=== PATIENT | female | born 1960 | race American Indian/Alaskan Native ===

== ENCOUNTER 2020-08-16 13:55 | Emergency (ER) | payer OTHER ==
--- NOTE | 2020-08-16 14:25 | Event Note ---
ED Screening Note ED Screening Note: Patient is a 50-year-old female presents emergency room with a history of endometrial hyperplasia and uterine fibroids who presents for heavy vaginal bleeding She states that she has been bleeding daily for a month She states over the last several days the bleeding has significantly increased she states that she is having to change her pad two or three times an hour She states that she had endometrial biopsy last month which she reports was normal She states that she has had have multiple D&Cs in the past She states that she has a preop appointment with her doctor on Tuesday for D&C versus hysterectomy She states that her doctor is Dr. Dary Eaton, [employer] and she advised her to be seen in the emergency room today Patient states that she was on Provera approximately a month ago for around 14 days She also has a history of hypertension and states that she takes losartan hydrochlorothiazide This initial assessment/diagnostic orders/clinical plan/treatment(s) is/are subject to change based on patients health status, clinical progression and re- assessment by fellow clinical providers in the ED. Further treatment and workup at subsequent clinical providers discretion. Patient/guardian urged not to elope from the ED as their condition may be serious if not clinically assessed and managed. Initial orders include: Labs, urine
[2020-08-16 14:26] VITALS: BP 221/103
[2020-08-16 15:05] LABS: Basophils # (Auto) 0.1 K/mm3 (0.0-0.1); Eosinophils # (Auto) 0.2 K/mm3 (0.0-0.4); Eosinophils % (Auto) 2.5 % (0.0-4.3); Hematocrit 33.5 % (30.3-42.9); Hemoglobin 11.3 gm/dl (10.1-14.3); Lymphocytes # (Auto) 1.6 K/mm3 (1.2-5.4); Lymphocytes % (Auto) 25.5 % (13.4-35.0); Mean Corpuscular HGB Conc 34 % (30-34); Mean Corpuscular Volume 84 fl (79-97); Monocytes # (Auto) 0.7 K/mm3 (0.0-0.8); Monocytes % (Auto) 11.2 % (0.0-7.3); Red Blood Count 4.01 M/mm3 (3.65-5.03); Red Cell Distribution Width 15.3 % (13.2-15.2)
[2020-08-16 15:10] LABS: Platelet Count 111 K/mm3 (140-440)
[2020-08-16 15:23] LABS: Bilirubin,Urine NEG (Negative); Blood,Urine MOD (Negative); Color,Urine Yellow (Yellow); Protein,Urine <15 mg/dL mg/dL (Negative)
[2020-08-16 15:28] LABS: Alanine Aminotransferase 24 units/L (7-56); Albumin 3.7 g/dL (3.9-5); Blood Urea Nitrogen 8 mg/dL (7-17); Calcium 8.8 mg/dL (8.4-10.2); Hemolysis Index 6
[2020-08-16 15:32] LABS: BUN/Creatinine Ratio 11
== END 2020-08-16 19:56 | disposition left against medical advice (07) ==
LOC: ED 13:55
DX: N93.9 Abnormal uterine and vaginal bleeding, unspecified (principal); Z53.21 Procedure and treatment not carried out due to patient leaving prior to being seen by health care provider
CPT/HCPCS: 36415; 80053; 81001; 84702; 85025; 86850; 86900; 86901

== ENCOUNTER 2020-09-16 06:05 | Day surgery (SDC) | payer OTHER ==
--- NOTE | 2020-09-16 06:46 | Short Stay Summary ---
Short Stay Documentation Date of service: 09/16/20 Narrative H&P: Pt is a 60 year old female who presents with recent history of postmenopausal bleeding. Pt had endometrial biopsy 3 months ago that showed complex hyerplasia without atypia, but patient did not follow up. She began bleeding again last month and was ready to proceed with intervention. - History Principal diagnosis: post menopausal bleeding H&P: obtained from office Past Medical History: hypertension Past Surgical History: arthroscopy Social history: - Allergies and Medications Current Medications: Allergies hepatitis B virus vaccine Allergy (Verified 09/15/20 11:34) Unknown megestrol [From Megace] Allergy (Verified 09/15/20 11:34) Heart palpitations, swelling Home Medications Medication Instructions Recorded Confirmed Last Taken Type Ferrous Sulfate [Feosol] 325 mg PO QDAY 09/15/20 09/15/20 Unknown History Furosemide [Lasix] 20 mg PO QDAY 09/15/20 09/15/20 Unknown History Losartan/Hydrochlorothiazide 1 each PO DAILY 09/15/20 09/15/20 Unknown History [Losartan-Hctz 50-12.5 mg Tab] Multivit-Min/Iron/Folic Acid/K 1 each PO DAILY 09/15/20 09/15/20 Unknown History [Adults Multivitamin Tablet] Active Medications Cefazolin Sodium 3 gm/ Sodium (Chloride) 100 mls @ 100 mls/30 min IV PREOP NR; Protocol - Physical exam General appearance: no acute distress Lungs: Clear to auscultation, Normal air movement Breasts: deferred Heart: Regular rate, Normal S1, Normal S2 Gastrointestinal: normal, normoactive bowel sounds Female Genitourinary: normal Rectal Exam: deferred Extremities: no ischemia, No edema - Brief post op/procedure progress note Date of procedure: 09/16/20 Pre-op diagnosis: Postmenopausal bleeding Post-op diagnosis: same Procedure: D&C with hysteroscopy Anesthesia: MAC Findings: Thickened endometrial lining Surgeon: MATA FONTAINE Estimated blood loss: minimal Pathology: list (endometrial currettings) Specimen disposition: to lab Condition: stable - Hospital course Hospital course: unremarkable - Disposition Condition at discharge: Good Disposition: DC-[id number] TO HOME OR SELFCARE Short Stay Discharge Plan Activity: no restrictions Weight Bearing Status: Weight Bear as Tolerated Diet: regular Follow up with: MEGHAN MENDEZ MD [Primary Care Provider] - 7 Days MATA FONTAINE MD [Staff Physician] - 14 Days Prescriptions: Ibuprofen [Motrin] 800 mg PO Q8HR PRN #40 tablet PRN Reason: Pain, Mild (1-3) HYDROcodone/APAP 5-325 [Sterling 5/325] 1 each PO Q6HR PRN #20 tablet PRN Reason: Pain
[2020-09-16 07:11] LABS: BUN/Creatinine Ratio 20; Blood Urea Nitrogen 16 mg/dL (7-17); Calcium 10.2 mg/dL (8.4-10.2); Hemolysis Index 0
[2020-09-16] MEDS ORDERED: HYDROmorphone 1 MG/1 ML INJ ONE (07:19)
[2020-09-16] MEDS ORDERED: LIDOCAINE MPF (2%) 20 MG/1 ML VIAL 5 ML ONE (07:20)
[2020-09-16] MEDS ORDERED: propofoL 200 MG/20 ML VIAL IV ONE (07:20)
[2020-09-16] MEDS ORDERED: MIDAZOLAM 2 MG/2 ML INJ IV NR (07:21)
[2020-09-16] MEDS ORDERED: METOCLOPRAMIDE 10 MG/2 ML INJ IV NR (07:21)
[2020-09-16] MEDS ORDERED: FAMOTIDINE 20 MG/2 ML INJ IV NR (07:21)
--- NOTE | 2020-09-16 07:29 | Anesthesia Day of Surgery ---
Anesthesia Day of Surgery - Day of Surgery Patient Examined: Yes Patient H&P Reviewed: Yes Patient is NPO: Yes
[2020-09-16] MEDS ORDERED: LACTATED RINGERS 1,000 ML IV SCH (07:30)
--- NOTE | 2020-09-16 07:33 | Anesthesia Consultation ---
Anesthesia Consult and Med Hx Date of service: 09/16/20 - Airway Anesthetic Teeth Evaluation: Partials (Upper and lower) ROM Head & Neck: Adequate Mental/Hyoid Distance: Adequate Mallampati Class: Class II - Pre-Operative Health Status ASA Pre-Surgery Classification: ASA3 Proposed Anesthetic Plan: General - Cardiovascular System Hx Hypertension: Yes (ECHO 03/2020) - Central Nervous System Hx Psychiatric Problems: No - Gastrointestinal Hx Gastroesophageal Reflux Disease: Yes (Occasional, dietary) - Hematic Hx Anemia: Yes Hx Sickle Cell Disease: Yes (Trait only) - Other Systems Hx Alcohol Use: Yes (Occas) Hx Cancer: No Hx Obesity: Yes - Additional Comments Anesthesia Medical History Comments: 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
[2020-09-16] MEDS ORDERED: HYDROmorphone 1 MG/1 ML INJ IV PRN ×2 (07:34)
[2020-09-16] MEDS ORDERED: ONDANSETRON 4 MG/2 ML INJ IV PRN (07:34)
[2020-09-16] MEDS ORDERED: ceFAZolin 1 GM VIAL ONE (08:08)
[2020-09-16] MEDS ORDERED: ceFAZolin/Water 2 GM/20 ML 2 GM/20 ML SYRINGE IV ONE (08:09)
[2020-09-16] MEDS ORDERED: MANNITOL/SORBITOL SOLUTION 3,000 ML IRRIG.SOLN IR ONE (08:12)
[2020-09-16] MEDS ORDERED: KETOROLAC 30 MG/1 ML INJ ONE (08:44)
[2020-09-16] MEDS ORDERED: ONDANSETRON 4 MG/2 ML INJ ONE (08:44)
[2020-09-16] MEDS ORDERED: ceFAZolin/STERILE WATER 2 GM/20 ML SYRINGE IV NR (09:00)
--- NOTE | 2020-09-16 09:03 | Operative Report ---
Operative Report Operative Report: Pre Op Diagnosis: Postmenopausal bleeding Post Op Diagnosis: Same Procedure: D&C with Hysteroscopy Surgeon: Monalisa Eaton MD EBL: Minimal IVF: 1200 LR Urine output: 75 cc Specimen: Endometrial curettings Complications: None Procedure: The patient returned to the OR with IV running and in place. She was given general anesthesia without difficulty. She was then placed in dorsolithotomy position and prepped and draped in normal sterile fashion. Her bladder was drained approximately 75 cc of clear yellow urine. Attention was then turned to the patient's vagina. A bivalve speculum placed in the vagina, the uterus was then identified and grasped with single-tooth tenaculum. It was then gently sounded to approximately 9 cm in length. It was then gently dilated up to approximately 21 mm. The hysteroscope was then introduced into the uterine cavity. It revealed thickened endometrium throughout with no discrete or obvious lesions . The scope was then removed, and the curettage was performed. This was done to there was a gritty texture noted in all 4 quadrants of the uterus. A second look was made using hysteroscope. There was excellent hemostasis. At this point all instruments the patient's vagina. She was then awakened and taken recovery in stable condition. The sponge and instrument counts were correct x2.
[2020-09-16 10:34] VITALS: BP 168/94
--- NOTE | 2020-09-16 19:39 | Post Anesthesia Evaluation ---
- Post Anesthesia Evaluation Patient Participated: Yes Airway Patent: Yes Stable Respiratory Function: Yes Nausea/Vomiting: No Temp > 96.8F: Yes Pain Manageable: Yes Adequeate Hydration: Yes Anesthesia Complications: No Block Receding Appropriately: Not Applicable Patient on Ventilator: No
== END 2020-09-16 10:10 | disposition home or self-care (01) ==
LOC: OR 06:05
PROVIDERS: ATTEND Obstetrics & Gynecology
DX: N95.0 Postmenopausal bleeding (principal); G43.909 Migraine, unspecified, not intractable, without status migrainosus; I10 Essential (primary) hypertension; K21.9 Gastro-esophageal reflux disease without esophagitis; E66.9 Obesity, unspecified; M19.90 Unspecified osteoarthritis, unspecified site; Z79.899 Other long term (current) drug therapy; Z88.8 Allergy status to other drugs, medicaments and biological substances; Z90.49 Acquired absence of other specified parts of digestive tract; Z98.891 History of uterine scar from previous surgery; Z72.89 Other problems related to lifestyle; Z68.42 Body mass index [BMI] 45.0-49.9, adult; Z98.890 Other specified postprocedural states; Z86.2 Personal history of diseases of the blood and blood-forming organs and certain disorders involving the immune mechanism
CPT/HCPCS: 36415; 58558; 80048; 85014; 85018; 86850; 86900; 86901; 88305; J0690; J1170; J1885; J2250; J2405; J2704; J2765; J7120